=== PATIENT | male | born 1990 | race Two or more races ===

== ENCOUNTER 2024-10-12 23:22 | Inpatient (IN) | payer OTHER ==
[~2024-10-12] VITALS: Ht 182.9 cm; Wt 71.7 kg
[~2024-10-12 23:22] MED LIST: DOXY-226 PO
[2024-10-12] MEDS ORDERED: LIDOCAINE 1%-EPI 1:100,000 20 ML VIAL ONE (23:58)
[2024-10-13] MEDS ORDERED: SODIUM BICARBONATE 4.2 % (NEUT) 5 ML VIAL ONE
[2024-10-13 00:12] LABS: CALCIUM 8.8 mg/dL (8.5-10.1); POTASSIUM 3.6 mmol/L (3.5-5.1)
[2024-10-13] MEDS ORDERED: ONDANSETRON 4 MG/2 ML VIAL ONE (00:12)
[2024-10-13] MEDS ORDERED: TDAP DIPH,PERTUSS,TET VAC/PF 0.5 ML DISP.SYRIN IM ONE (00:13)
[2024-10-13] MEDS ORDERED: CEphaleXIN 500 MG CAPSULE ONE (00:13)
[2024-10-13] MEDS: SODIUM BICARBONATE 4.2 % (NEUT) 5 ML VIAL TP ONE (00:22)
[2024-10-13] MEDS: LIDOCAINE 1%-EPI 1:100,000 20 ML VIAL IJ ONE (00:22)
[2024-10-13] MEDS: CEphaleXIN 500 MG CAPSULE PO ONE (00:25)
[2024-10-13] MEDS: IV NORMAL SALINE 1000 ML BAG IV ONE (00:25)
[2024-10-13] MEDS: ONDANSETRON 4 MG/2 ML VIAL IV ONE (00:25)
[2024-10-13 00:30] LABS: BASOPHILS # (AUTO) 0.1 K/UL (0.0-0.2); MEAN CORPUSCULAR HEMOGLOBIN 17.5 uug (23.8-33.4)
[2024-10-13] MEDS: TDAP DIPH,PERTUSS,TET VAC/PF 0.5 ML DISP.SYRIN IM ONE (00:30)
[2024-10-13 00:31] LABS: BASOPHILS % (AUTO) 1.1 % (0.0-2.0); EOSINOPHILS # (AUTO) 0.2 K/uL (0.0-0.7); EOSINOPHILS % (AUTO) 1.7 % (0.0-7.0); HEMATOCRIT 24.1 % (36.7-47.1); LYMPHOCYTES # (AUTO) 1.6 K/uL (0.8-4.8); LYMPHOCYTES % (AUTO) 16.6 % (20.5-51.5); MEAN CORPUSCULAR HGB CONC 30 g/dL (32.5-36.3); MEAN CORPUSCULAR VOLUME 59.2 fL (73.0-96.2); MONOCYTES # (AUTO) 0.7 K/uL (0.1-1.30); MONOCYTES % (AUTO) 7.1 % (0.0-11.0); NEUTROPHILS # (AUTO) 7.2 K/uL (1.8-8.9); NEUTROPHILS % (AUTO) 73.5 % (38.5-71.5); PLATELET COUNT (AUTO) 376 K/uL (152-348); RED BLOOD CELL COUNT(AUTO) 4.06 MIL/uL (4.06-5.63); RED CELL DISTRIBUTION WIDTH 18.1 % (12.1-16.2); WHITE BLOOD COUNT (AUTO) 9.9 K/uL (3.6-10.2)
[2024-10-13 00:32] LABS: HEMOGLOBIN 7.1 g/dL (12.5-16.3)
[2024-10-13 01:20] LABS: *OCCULT BLOOD STOOL NEGATIVE (NEGATIVE)
[2024-10-13] MEDS ORDERED: CHLO473M5 PO (01:23)
[2024-10-13] MEDS ORDERED: TRAZ-257 PO (01:23)
[2024-10-13] MEDS ORDERED: IBUP-1957 PO (01:23)
[2024-10-13 01:48] LABS: EOSINOPHILS % (MANUAL) 1 % (0-8); LYMPHOCYTES % (MANUAL) 19 % (20-40); MONOCYTES % (MANUAL) 6 % (2-10); NEUTROPHILS % (MANUAL) 74 % (42-75)
[2024-10-13] MEDS ORDERED: PANTOPRAZOLE SODIUM 40 MG VIAL ONE (02:37)
[2024-10-13] MEDS: PANTOPRAZOLE SODIUM 40 MG VIAL IV ONE (02:40)
[2024-10-13] MEDS ORDERED: ONDANSETRON 4 MG/2 ML VIAL IV PRN (02:45)
[2024-10-13] MEDS ORDERED: ACETAMINOPHEN 325 MG TABLET PO PRN (02:45)
[2024-10-13] MEDS ORDERED: MAGNESIUM HYDROXIDE 30 ML LIQUID UDC PO PRN (02:45)
[2024-10-13] MEDS ORDERED: REMEDY ESSENTIAL ZINC PASTE 113 GM TP PRN (02:45)
[2024-10-13 06:13] VITALS: BP 115/53; TEMP 98.2; O2SAT 97
[2024-10-13 06:26] LABS: BASOPHILS # (AUTO) 0.1 K/UL (0.0-0.2); EOSINOPHILS # (AUTO) 0.2 K/uL (0.0-0.7); EOSINOPHILS % (AUTO) 1.4 % (0.0-7.0); HEMATOCRIT 23.7 % (36.7-47.1); LYMPHOCYTES # (AUTO) 2.3 K/uL (0.8-4.8); LYMPHOCYTES % (AUTO) 20.9 % (20.5-51.5); MEAN CORPUSCULAR HEMOGLOBIN 17.6 uug (23.8-33.4); MEAN CORPUSCULAR HGB CONC 30 g/dL (32.5-36.3); MEAN CORPUSCULAR VOLUME 59.6 fL (73.0-96.2); MONOCYTES # (AUTO) 0.6 K/uL (0.1-1.30); MONOCYTES % (AUTO) 5.3 % (0.0-11.0); NEUTROPHILS # (AUTO) 7.7 K/uL (1.8-8.9); NEUTROPHILS % (AUTO) 71.4 % (38.5-71.5); PLATELET COUNT (AUTO) 389 K/uL (152-348); RED BLOOD CELL COUNT(AUTO) 3.98 MIL/uL (4.06-5.63); RED CELL DISTRIBUTION WIDTH 18.7 % (12.1-16.2); WHITE BLOOD COUNT (AUTO) 10.8 K/uL (3.6-10.2)
[2024-10-13 07:04] LABS: CREATININE 0.8 mg/dL (0.6-1.3); POTASSIUM 3.8 mmol/L (3.5-5.1)
[2024-10-13 07:08] LABS: MAGNESIUM 1.7 mg/dL (1.8-2.4); PHOSPHOROUS 3.8 mg/dL (2.5-4.9)
[2024-10-13 07:17] VITALS: BP 114/56; TEMP 98.4; O2SAT 94
[2024-10-13 07:58] LABS: ANISOCYTOSIS 2+; BASOPHILS % (MANUAL) 1 % (0-2); EOSINOPHILS % (MANUAL) 1 % (0-8); HYPOCHROMASIA 3+; LYMPHOCYTES % (MANUAL) 21 % (20-40); MONOCYTES % (MANUAL) 6 % (2-10); NEUTROPHILS % (MANUAL) 71 % (42-75); PLATELET ESTIMATE INCREASED
[2024-10-13] MEDS: PANTOPRAZOLE SODIUM 40 MG VIAL IV SCH (09:21)
[2024-10-13] MEDS: IV NS 1000 ML 1,000 ML IV SCH (09:22)
[2024-10-13 11:23] VITALS: BP 112/53; TEMP 98.2; O2SAT 95
[2024-10-13] MEDS: MAGNESIUM OXIDE 400 MG TABLET PO ONE (11:57)
[2024-10-13] MEDS ORDERED: FERR240T5 PO (14:04)
[2024-10-13] MEDS ORDERED: PANT40TA2 PO (14:04)
[2024-10-13 15:18] VITALS: BP 108/61; TEMP 98.8; O2SAT 98
== END 2024-10-13 17:20 | disposition other institution (70) | DRG 811 ==
LOC: ER 23:24 → TELE3 10-13 04:46
PROVIDERS: ATTEND Internal Medicine
PROC: 0HQ1XZZ Repair Face Skin, External Approach (ICD-10-PCS; principal; 2024-10-13)
DX: D50.9 Iron deficiency anemia, unspecified (principal); K27.4 Chronic or unspecified peptic ulcer, site unspecified, with hemorrhage; J32.8 Other chronic sinusitis; R55 Syncope and collapse; E83.42 Hypomagnesemia; S01.81XA Laceration without foreign body of other part of head, initial encounter; W18.30XA Fall on same level, unspecified, initial encounter; Y92.199 Unspecified place in other specified residential institution as the place of occurrence of the external cause; Z83.3 Family history of diabetes mellitus; Z82.49 Family history of ischemic heart disease and other diseases of the circulatory system; F17.210 Nicotine dependence, cigarettes, uncomplicated; F10.11 Alcohol abuse, in remission; F15.11 Other stimulant abuse, in remission; Z79.1 Long term (current) use of non-steroidal anti-inflammatories (NSAID); I45.10 Unspecified right bundle-branch block; M50.30 Other cervical disc degeneration, unspecified cervical region
CPT/HCPCS: 36415; 70030-TC; 70450; 72125; 83550; 83735; 84100; 85025; 86850; 86900; 86901; 90715; 93307; A4606; A4663; G0378; J2405; J2470; J3490; J7040

== ENCOUNTER 2024-10-19 13:38 | Emergency (ER) | payer OTHER ==
[~2024-10-19] VITALS: Ht 180.3 cm; Wt 71.7 kg
[~2024-10-19 13:38] MED LIST changes: -DOXY-226 PO; +FERR240T5 PO; +PANT40TA2 PO; +TRAZ-257 PO
[2024-10-19 13:39] VITALS: O2SAT 99
== END 2024-10-19 13:53 | disposition home or self-care (01) ==
LOC: ER 13:39
DX: S01.81XD Laceration without foreign body of other part of head, subsequent encounter (principal); X58.XXXD Exposure to other specified factors, subsequent encounter; F17.200 Nicotine dependence, unspecified, uncomplicated; Z79.899 Other long term (current) drug therapy
CPT/HCPCS: A4606; A4663